=== PATIENT | female | born 1925 | race Caucasian/White ===

== ENCOUNTER 2016-10-22 12:59 | Outpatient (CLI) | payer MEDICARE ==
[2016-10-22 13:23] LABS: #Lymphocytes 0.9 thou/uL (1.20-3.40); #Monocytes 0.6 thou/uL (0.11-0.59); %Basophils 0.8 % (0.0-1.0); %Eosinophils 0.9 % (0.0-10.0); %Lymphocytes 19.8 % (21.0-51.0); %Monocytes 12.3 % (0.0-10.0); Hematocrit 28.2 % (36.0-47.0); Mean Platelet Volume 6.8 fL (7.4-10.4); Red Blood Cell (RBC) Count 2.89 mill/uL (4.20-5.40); White Blood Cell (WBC) Count 4.5 thou/uL (4.8-10.8)
[2016-10-22 14:04] LABS: ALT (SGPT) 33 U/L (0-55); AST (SGOT) 27 U/L (5-34); Alkaline Phosphatase 81 U/L (40-150); Anion Gap 13 mmol/L (10-20); BUN (Urea Nitrogen) 51 mg/dL (9.8-20.1); Bilirubin, Total 0.5 mg/dL (0.2-1.2); Calc. Creatinine Clearance 0 mL/min (70-130); Calcium 8.6 mg/dL (7.8-10.44); Carbon Dioxide 25 mmol/L (23-31); Chloride 103 mmol/L (98-107); Estimated GFR-MDRD 17; Globulin 2.8 g/dL (2.4-3.5); Protein, Total 6.3 g/dL (5.8-8.1)
== END 2016-10-22 13:00 | disposition home or self-care (01) ==
LOC: NAVSJIPCSP 12:59 → NAV LAB 13:00
PROVIDERS: ATTEND Internal Medicine
DX: I48.91 Unspecified atrial fibrillation (principal); N18.4 Chronic kidney disease, stage 4 (severe); I50.43 Acute on chronic combined systolic (congestive) and diastolic (congestive) heart failure
CPT/HCPCS: 36415; 80053; 85025; 86850; 86900; 86901

== ENCOUNTER 2016-10-23 10:01 | Inpatient (IN) | payer MEDICARE ==
[2016-10-23] MEDS ORDERED: Acetaminophen 325 MG TAB PO PRN ×2 (11:16→11:20)
[2016-10-23] MEDS ORDERED: Ondansetron ODT 4 MG TAB PO PRN (11:16)
[2016-10-23] MEDS ORDERED: traMADol HCl 50 MG TAB PO PRN (11:20)
[2016-10-23 12:12] LABS: #Basophils 0.1 thou/uL (0.0-0.2); #Lymphocytes 0.9 thou/uL (1.20-3.40); #Monocytes 0.7 thou/uL (0.11-0.59); #Neutrophils 3.4 thou/uL (1.40-6.50); %Basophils 1.1 % (0.0-1.0); %Eosinophils 0.7 % (0.0-10.0); %Lymphocytes 17.4 % (21.0-51.0); Hematocrit 27.6 % (36.0-47.0); Mean Platelet Volume 6.3 fL (7.4-10.4); Red Blood Cell (RBC) Count 2.81 mill/uL (4.20-5.40)
[2016-10-23 12:24] LABS: Anion Gap 16 mmol/L (10-20); BUN (Urea Nitrogen) 51 mg/dL (9.8-20.1); Calc. Creatinine Clearance 14 mL/min (70-130); Calcium 8.6 mg/dL (7.8-10.44); Carbon Dioxide 23 mmol/L (23-31); Chloride 103 mmol/L (98-107); Estimated GFR-MDRD 17
[2016-10-23] MEDS ORDERED: Sodium Chloride 0.9% 10 ML ONE (13:51)
[2016-10-23] MEDS: Furosemide 40 MG/4 ML VIAL SLOW IVP SCH (14:18)
--- NOTE | 2016-10-23 16:04 | RAD ---
CHEST TWO VIEWS: History: CHF. Dyspnea. Comparison: 07-19-16 FINDINGS: The cardiac silhouette is enlarged. Pulmonary vasculature is unremarkable. Small amount of bilater al pleural fluid is present. Mediastinum is midline with aortic calcification and a dual-lead left subclavian cardiac electronic device. central office equipment installer leads overlie the chest. IMPRESSION: 1. Small amount of bilateral pleural fluid without florid edema. 2. COPD. 3. Atherosclerosis. POS: [facility]
[2016-10-23] MEDS: Dronedarone HCl 400 MG TAB PO SCH (17:12)
[2016-10-23] MEDS: Carvedilol 25 MG TAB PO SCH (20:47)
[2016-10-23] MEDS: Famotidine 20 MG TAB PO SCH (20:48)
[2016-10-23] MEDS: Docusate 100 MG CAP PO SCH (20:48)
[2016-10-24] MEDS ORDERED: Sodium Chloride 0.9% 10 ML ONE (05:38)
[2016-10-24] MEDS: Furosemide 40 MG/4 ML VIAL SLOW IVP SCH ×2 (05:44→14:15)
[2016-10-24] MEDS ORDERED: Enoxaparin Sodium 40 MG/0.4 ML SYRINGE SC SCH (06:00)
[2016-10-24] MEDS ORDERED: Levothyroxine Sodium 50 MCG TAB PO SCH (06:00)
[2016-10-24 06:14] LABS: #Basophils 0.1 thou/uL (0.0-0.2); #Eosinphils 0.1 thou/uL (0.0-0.7); #Monocytes 0.6 thou/uL (0.11-0.59); #Neutrophils 2.8 thou/uL (1.40-6.50); %Basophils 1.2 % (0.0-1.0); %Eosinophils 1.3 % (0.0-10.0); %Lymphocytes 22.4 % (21.0-51.0); %Monocytes 13.4 % (0.0-10.0); Hematocrit 29.5 % (36.0-47.0); Mean Platelet Volume 6.4 fL (7.4-10.4); Red Blood Cell (RBC) Count 3.15 mill/uL (4.20-5.40); White Blood Cell (WBC) Count 4.5 thou/uL (4.8-10.8)
[2016-10-24 07:57] LABS: Anion Gap 11 mmol/L (10-20); BUN (Urea Nitrogen) 50 mg/dL (9.8-20.1); Calc. Creatinine Clearance 14 mL/min (70-130); Calcium 8.4 mg/dL (7.8-10.44); Carbon Dioxide 27 mmol/L (23-31); Chloride 104 mmol/L (98-107); Estimated GFR-MDRD 19
[2016-10-24] MEDS: Dronedarone HCl 400 MG TAB PO SCH ×2 (08:09→16:57)
[2016-10-24] MEDS: Docusate 100 MG CAP PO SCH (08:52)
[2016-10-24] MEDS: Famotidine 20 MG TAB PO SCH (08:52)
[2016-10-24] MEDS: Carvedilol 25 MG TAB PO SCH (08:53)
[2016-10-24] MEDS ORDERED: Lisinopril 10 MG TAB PO SCH (09:00)
[2016-10-24] MEDS ORDERED: Aspirin 81 mg Enteric Coated Tablet PO SCH (09:00)
[2016-10-24] MEDS ORDERED: Potassium Chloride 20 MEQ TAB PO SCH (09:00)
[2016-10-24] MEDS ORDERED: Sodium Chloride 0.9% 20 ML ONE (13:10)
[2016-10-24 18:29] VITALS: BP 119/56; TEMP 98.7
[2016-10-25] MEDS ORDERED: Furosemide 20 MG TAB PO SCH (09:00)
--- NOTE | 2016-10-29 09:01 | SS ---
DATE OF ADMISSION: 10/23/2016 DATE OF DISCHARGE: 10/24/2016 FINAL DIAGNOSES: 1. 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 2. Exacerbation of congestive heart failure with recurrent increased edema. 3. Chronic atrial fibrillation. 4. Severe hypertension. 5. Past history of poor control, now well controlled. 6. Osteoporosis and osteoarthritis with compression H. pylori with multiple compression fractures. 7. Chronic atrial fibrillation. HOSPITAL COURSE: Patient is a very pleasant 89-year-old white female living at home alone on medica tions of Tylenol as needed for pain, low dose aspirin 81 daily, calcium with vitamin D 800 mg twice daily, carvedilol 25 twice daily, docusate 100 twice daily, Multaq 400 twice daily, furosemide 20 mg daily, levothyroxine 50 mcg daily, lisinopril 10 daily, loratadine 10 daily, Protonix 40 daily, KCl 20 mEq daily. Patient had been fairly well until the last several weeks when she began to have inc reasing edema, not associated with any shortness of breath with associated fatigue, because of incre ased weight. She was seen in the office and found to have gains 12 pounds and to have 4+ edema. Th e peripheries with normal sinus rhythm, clear lung ray, stable vital signs with blood pressure 13 9/67, pulse of 66. She has had history of atrial fibrillation in the past, controlled with Multaq. She also has a history of chronic kidney disease stage 4, which has limited her diuresis in the reg ion she was only on 20 mg of Lasix. Her most recent creatinine prior to this admission was 1.36 in July; however, because of the increasing edema and fatigue, she was evaluated for recurrent anemi a and was found to have hemoglobin decreased again down to 8.5 from post-transfusion hemoglobin of 1 0.3 on 08/11/2016. This is slowly decreased to 9.6 and 8.8 over the last several months, and it was felt that possibly this was causing exacerbation of her congestive heart failure. She was therefor e admitted to the hospital transfused with 1 unit of packed cells and start her on aggressive diures is with Lasix 40 mg IV push twice daily during the transfusion. She had a significant diuresis in [facility] and had stable blood pressure and vital signs are remaining 119/56, O2 sats have improve d to 96% on room air, respirations were 20. Skin and extremities showed decreased edema. She did h ave a 4000 mL of output. She felt much better and wished to be discharged home. Had only 2+ edema at that time was healing well and agreed to be discharged home on 40 mg of Lasix twice daily. Jacque rn is, however, that her creatinine still remained elevated at 2.44, although it did improve with di uresis concerning that may not tolerate this dose of Lasix. Her BNP was found to be elevated at 832 , which was increased from previous BNP of 423 after the transfusion. Now therefore that she is mos t likely having slowly worsening renal function, exacerbating her longstanding hypertension, and con gestive heart failure and would need to be monitored closely; however, because of the need to contro l the edema, needed to control possible with exacerbation of congestive heart failure. We will disc arnel to home on 40 twice daily and return to the clinic in 1 week with basic metabolic profile for evaluation. Discharge medications included furosemide 40 mg twice daily and all other medications r emaining the same.
--- NOTE | 2016-11-14 17:33 | PQF ---
SANDY JACK LUKE MD [id number] CLINICAL DOCUMENTATION CLARIFICATION FORM: POST DISCHARGE PLEASE FAX RESPONSE BACK TO [phone] Addendum to original discharge summary date: ____ Late entry note date: __ DATE: ATTN: The following CLINICAL INDICATORS - SIGNS / SYMPTOMS are present in the medical record: - DC Summary says patient's CHF is excercebated. Please identify the type of CHF this patient suffers from [x ]Ascites / peripheral edema [x ]Elevated BNP from 423 to 832 [ ] RISKS: [ ]History of cardiac disease [ ]History of AICD [ ] TREATMENTS: [ ]Administration of CONSTANTIN / ARB [ ]Cardiac monitoring / telemetry [ ]IV diuretics [ ]Oxygen [ ] Please provide a response below if a more specific term indicating a diagnosis and/or acuity level for this condition can be identified. Please exercise your independent, professional judgment in responding to the clarification form. Clinical indicators are provided on the bottom of this form for your review. Thank you. [ ] Present on Admission (POA): [ ] Yes [ ] No [ ] Unable to determine ACUTE HEART FAILUREOTHER ETIOLOGIES OF HEART FAILURE [ ] Acute Systolic Heart Failure [ ] Heart Failure Due To Valvular Disease [ ] Acute Diastolic Heart Failure [ ] Right Heart Failure / Acute Cor Pulmonale [ ] Acute Systolic and Diastolic Heart Failure[ ] Right Heart Failure / Chronic Cor Pulmonale ACUTE ON CHRONIC HEART FAILURE MTDD
== END 2016-10-24 18:46 | disposition home or self-care (01) | DRG 299 ==
LOC: NAV ACUTE 10:01
PROVIDERS: ADMIT Internal Medicine; ATTEND Internal Medicine
PROC: 30233N1 Transfusion of Nonautologous Red Blood Cells into Peripheral Vein, Percutaneous Approach (ICD-10-PCS; principal; 2016-10-23)
DX: Q27.33 Arteriovenous malformation of digestive system vessel (principal); I50.43 Acute on chronic combined systolic (congestive) and diastolic (congestive) heart failure; N18.4 Chronic kidney disease, stage 4 (severe); K92.2 Gastrointestinal hemorrhage, unspecified; I13.0 Hypertensive heart and chronic kidney disease with heart failure and stage 1 through stage 4 chronic kidney disease, or unspecified chronic kidney disease; I48.2 Chronic atrial fibrillation; D64.9 Anemia, unspecified; M81.0 Age-related osteoporosis without current pathological fracture; M19.90 Unspecified osteoarthritis, unspecified site
CPT/HCPCS: 36430; 71020; 80048; 83880; 85025; 86850; 86900; 86901; A4216; J1650; J1940; P9016

== ENCOUNTER 2016-11-04 09:22 | Outpatient (CLI) | payer MEDICARE ==
[2016-11-04 13:27] LABS: #Lymphocytes 0.9 thou/uL (1.20-3.40); #Monocytes 0.5 thou/uL (0.11-0.59); #Neutrophils 2.5 thou/uL (1.40-6.50); %Basophils 0.9 % (0.0-1.0); %Eosinophils 1.2 % (0.0-10.0); %Lymphocytes 23.2 % (21.0-51.0); %Monocytes 12.8 % (0.0-10.0); Hematocrit 31.8 % (36.0-47.0); Mean Platelet Volume 5.9 fL (7.4-10.4)
[2016-11-04 13:32] LABS: Anion Gap 15 mmol/L (10-20); BUN (Urea Nitrogen) 53 mg/dL (9.8-20.1); Calc. Creatinine Clearance 0 mL/min (70-130); Carbon Dioxide 31 mmol/L (23-31); Chloride 98 mmol/L (98-107); Estimated GFR-MDRD 19
== END 2016-11-04 09:23 | disposition home or self-care (01) ==
LOC: NAVSJIPCSP 09:22
PROVIDERS: ATTEND Internal Medicine
DX: I50.43 Acute on chronic combined systolic (congestive) and diastolic (congestive) heart failure (principal); N18.4 Chronic kidney disease, stage 4 (severe)
CPT/HCPCS: 36415; 80048; 83880; 85025

== ENCOUNTER 2016-11-27 09:38 | Outpatient (CLI) | payer MEDICARE ==
[2016-11-27 13:15] LABS: Anion Gap 16 mmol/L (10-20); BUN (Urea Nitrogen) 58 mg/dL (9.8-20.1); Calc. Creatinine Clearance 0 mL/min (70-130); Carbon Dioxide 27 mmol/L (23-31); Chloride 97 mmol/L (98-107); Estimated GFR-MDRD 16
[2016-11-27 14:31] LABS: Anisocytosis SLIGHT = 6-15 cells (100X) (0-5/hpf); Hematocrit 29.1 % (36.0-47.0); Hypochromia SLIGHT = 6-15 cells (100X) (0-5/hpf); Mean Platelet Volume 6.1 fL (7.4-10.4); Neutrophil 59 % (42-75); Reactive Lymphocytes 1 % (0-10); Red Blood Cell (RBC) Count 3.04 mill/uL (4.20-5.40); White Blood Cell (WBC) Count 4.8 thou/uL (4.8-10.8)
== END 2016-11-27 09:39 | disposition home or self-care (01) ==
LOC: NAVSJIPCSP 09:38
PROVIDERS: ATTEND Internal Medicine
DX: I12.9 Hypertensive chronic kidney disease with stage 1 through stage 4 chronic kidney disease, or unspecified chronic kidney disease (principal); I50.43 Acute on chronic combined systolic (congestive) and diastolic (congestive) heart failure; N18.4 Chronic kidney disease, stage 4 (severe); K55.21 Angiodysplasia of colon with hemorrhage
CPT/HCPCS: 36415; 80048; 83880; 85025

== ENCOUNTER 2017-01-18 15:06 | Emergency (ER) | payer MEDICARE ==
[2017-01-18 15:55] LABS: #Monocytes 0.6 thou/uL (0.11-0.59); #Neutrophils 3.4 thou/uL (1.40-6.50); %Basophils 0.7 % (0.0-1.0); %Eosinophils 0.4 % (0.0-10.0); %Lymphocytes 19.9 % (21.0-51.0); %Monocytes 11.3 % (0.0-10.0); %Neutrophils 67.7 % (42.0-75.0); Hemoglobin 6.2 g/dL (12.0-16.0); Mean Corpuscular HGB CONC 32.2 g/dL (32.0-36.0); Mean Corpuscular Hemoglobin 28.9 pg (27.0-31.0); Mean Corpuscular Volume 89.9 fl (81.0-99.0); Mean Platelet Volume 6.7 fL (7.4-10.4); Platelet Count 170 thou/uL (130-400); RBC Distribution Width 12.6 % (11.5-14.5); Red Blood Cell (RBC) Count 2.14 mill/uL (4.20-5.40); White Blood Cell (WBC) Count 5.1 thou/uL (4.8-10.8)
[2017-01-18 16:00] LABS: INR-International Normal Ratio 1.2; Prothrombin Time 15.1 SEC (12.0-14.7)
[2017-01-18 16:09] LABS: ALT (SGPT) 23 U/L (0-55); AST (SGOT) 27 U/L (5-34); Albumin 3.5 g/dL (3.4-4.8); Alkaline Phosphatase 66 U/L (40-150); Anion Gap 18 mmol/L (10-20); BUN (Urea Nitrogen) 78 mg/dL (9.8-20.1); Bilirubin, Total 0.5 mg/dL (0.2-1.2); Calc. Creatinine Clearance 0 mL/min (70-130); Calcium 8.7 mg/dL (7.8-10.44); Carbon Dioxide 23 mmol/L (23-31); Chloride 96 mmol/L (98-107); Estimated GFR-MDRD 13; Globulin 2.6 g/dL (2.4-3.5); Glucose 111 mg/dL (83-110); Potassium 5.1 mmol/L (3.5-5.1); Protein, Total 6.1 g/dL (5.8-8.1); Sodium 132 mmol/L (136-145)
--- NOTE | 2017-01-18 16:27 | RAD ---
PORTABLE CHEST ONE VIEW 01/18/17 at 4:01 p.m. HISTORY: Dyspnea, dizziness, nausea. FINDINGS: Comparison is made with exam of 10/23/16. Left sided pacemaker device remains in place. The heart size is enlarged. The aorta is tortuous. The lungs are well expanded without confluent areas or consolidation, pneumothorax, lena pulmonary marlon ma or large pleural effusions. POS: [facility]
[2017-01-18] MEDS ORDERED: Pantoprazole 40 MG VIAL ONE (16:42)
[2017-01-18] MEDS ORDERED: Sodium Chloride 0.9% 500 ML ONE (17:32)
== END 2017-01-18 18:00 | disposition short-term general hospital (02) ==
LOC: NAV ERS 15:06
DX: K92.2 Gastrointestinal hemorrhage, unspecified (principal); D50.0 Iron deficiency anemia secondary to blood loss (chronic); E78.5 Hyperlipidemia, unspecified; I10 Essential (primary) hypertension; Z95.0 Presence of cardiac pacemaker; Z79.899 Other long term (current) drug therapy
CPT/HCPCS: 36430; 71010; 80053; 85025; 85610; 86850; 86900; 86901; 93005; 96374; C9113; J7050; P9016

== ENCOUNTER 2017-01-29 11:43 | Outpatient (CLI) | payer MEDICARE ==
[2017-01-29 12:35] LABS: #Eosinphils 0.1 thou/uL (0.0-0.7); #Lymphocytes 1.1 thou/uL (1.20-3.40); #Monocytes 0.6 thou/uL (0.11-0.59); #Neutrophils 2.8 thou/uL (1.40-6.50); %Eosinophils 1.2 % (0.0-10.0); %Lymphocytes 24.7 % (21.0-51.0); %Monocytes 12.1 % (0.0-10.0); Hemoglobin 7.8 g/dL (12.0-16.0); Mean Corpuscular HGB CONC 31.7 g/dL (32.0-36.0); Mean Corpuscular Volume 88.5 fl (81.0-99.0); Mean Platelet Volume 6.1 fL (7.4-10.4); Platelet Count 211 thou/uL (130-400); RBC Distribution Width 13.9 % (11.5-14.5); Red Blood Cell (RBC) Count 2.79 mill/uL (4.20-5.40); White Blood Cell (WBC) Count 4.5 thou/uL (4.8-10.8)
[2017-01-29 12:55] LABS: Anion Gap 12 mmol/L (10-20); BUN (Urea Nitrogen) 55 mg/dL (9.8-20.1); Calc. Creatinine Clearance 0 mL/min (70-130); Calcium 8.6 mg/dL (7.8-10.44); Carbon Dioxide 28 mmol/L (23-31); Chloride 98 mmol/L (98-107); Estimated GFR-MDRD 17; Glucose 75 mg/dL (83-110); Potassium 4.3 mmol/L (3.5-5.1); Sodium 134 mmol/L (136-145)
== END 2017-01-29 11:44 | disposition home or self-care (01) ==
LOC: NAVSJIPCSP 11:43
PROVIDERS: ATTEND Internal Medicine
DX: N18.4 Chronic kidney disease, stage 4 (severe) (principal); K55.21 Angiodysplasia of colon with hemorrhage
CPT/HCPCS: 36415; 80048; 83880; 85025

== ENCOUNTER 2017-02-09 10:13 | Inpatient (IN) | payer MEDICARE ==
[2017-02-09] MEDS ORDERED: Ondansetron HCl/PF 4 MG/2 ML Vial ONE (10:42)
[2017-02-09] MEDS ORDERED: Ketorolac Tromethamine 30 MG/ML VIAL ONE (10:42)
[2017-02-09] MEDS ORDERED: Fentanyl 100 MCG/2 ML VIAL ONE ×2 (10:42→12:27)
[2017-02-09 10:59] LABS: #Lymphocytes 0.9 thou/uL (1.20-3.40); #Monocytes 0.6 thou/uL (0.11-0.59); #Neutrophils 3.3 thou/uL (1.40-6.50); %Basophils 0.9 % (0.0-1.0); %Eosinophils 0.5 % (0.0-10.0); %Lymphocytes 17.9 % (21.0-51.0); %Monocytes 12.5 % (0.0-10.0); %Neutrophils 68.3 % (42.0-75.0); Hemoglobin 6.8 g/dL (12.0-16.0); Mean Corpuscular HGB CONC 32.3 g/dL (32.0-36.0); Mean Corpuscular Volume 86.9 fl (81.0-99.0); Mean Platelet Volume 5.9 fL (7.4-10.4); Platelet Count 219 thou/uL (130-400); RBC Distribution Width 14.1 % (11.5-14.5); Red Blood Cell (RBC) Count 2.43 mill/uL (4.20-5.40); White Blood Cell (WBC) Count 4.8 thou/uL (4.8-10.8)
[2017-02-09 11:03] LABS: Bilirubin Negative (Negative); Blood, Urine Negative (Negative); Clarity Hazy (Clear); Glucose, Urine (Dipstick) Negative (Negative); Leukocyte Small (Negative); Nitrite Negative (Negative); Protein, Urine (Dipstick) Negative (Neg-Trace); Specific Gravity, Urine 1.015 (1.005-1.030); Urobilinogen 0.2 mg/dL (0.2-1.0)
[2017-02-09 11:09] LABS: Bacteria/HPF 1+ HPF (None Seen); RBC/HPF 0-3 HPF (0-3); Squamous Epithelial 0-3 HPF (0-3)
[2017-02-09] MEDS ORDERED: Levofloxacin 500 mg/D5W 100 ml Premix Bag ONE (11:14)
[2017-02-09 11:23] LABS: Amylase 112 U/L (20-160); Anion Gap 17 mmol/L (10-20); BUN (Urea Nitrogen) 65 mg/dL (9.8-20.1); Calc. Creatinine Clearance 0 mL/min (70-130); Calcium 8.5 mg/dL (7.8-10.44); Carbon Dioxide 24 mmol/L (23-31); Chloride 97 mmol/L (98-107); Estimated GFR-MDRD 16; Glucose 122 mg/dL (83-110); Lipase 26 U/L (8-78); Potassium 4.6 mmol/L (3.5-5.1); Sodium 133 mmol/L (136-145)
[2017-02-09 11:25] LABS: CKMB 1.9 ng/mL (0-6.6); Troponin I 0.012 ng/mL (< 0.028)
[2017-02-09] MEDS ORDERED: methylPREDNISolone Sod Succ/PF 125 MG/2 ML VIAL ONE (12:34)
--- NOTE | 2017-02-09 12:37 | CT ---
CT OF THE ABDOMEN AND PELVIS: DATE: 02/09/17. PROVIDED CLINICAL HISTORY: Back pain. TECHNIQUE: CT data was acquired through the abdomen and pelvis without IV or enteric contrast material. FINDINGS: Comparison is made with the examination dated 04/25/14. There are small bilateral pleural effusions with adjacent basilar volume loss. Enlargement of the heart is again noted with conspicuous dilatation of the IVC suggesting right hear t dysfunction. This is similar to the prior study. Large right renal cyst is redemonstrated. There is a focus of increased density seen in the expected location of the distal common duct. It i s possible this represents contrast material within the descending duodenum as well. It is difficul t to assess for biliary or pancreatic ductal dilatation given lack of IV contrast. Conspicuous atherosclerotic vascular calcifications involve the abdominal aorta and its branches. T here is no evidence for abdominal aortic aneurysm. Evaluation of the pelvis is markedly limited due to beam hardening artifact and bilateral hip arthro plasties. Partially visualized sigmoid colon diverticula and free pelvic fluid are noted. Changes of prior cholecystectomy are seen. The osseous structures demonstrate no concerning osteoblastic or osteolytic lesions. Compression de formity involving L1 with vertebroplasty change again noted as is compression deformity at superior end late of L4. There is no evidence for bowel obstruction. No evidence for pneumoperitoneum. IMPRESSION: 1. Limited study due to the lack of IV and enteric contrast material. 2. Focus of increased density in the right upper quadrant near the expected course of the common du ct. This could reflect a common duct stone. Less likely, this could reflect material within the de scending duodenum. Correlation with laboratory values is recommended to evaluate for biliary obstru ctive change. MRCP may be useful for further evaluation. 3. Small bilateral pleural effusions. 4. Conspicuous atherosclerosis. 5. A small amount of nonspecific free fluid in the pelvis, incompletely characterized due to extens libertad beam-hardening artifact from bilateral hip arthroplasties. POS: [facility]
[2017-02-09] MEDS ORDERED: Sodium Chloride 0.9% 1,000 ML IV SCH (14:17)
[2017-02-09] MEDS ORDERED: Ondansetron HCl/PF 4 MG/2 ML Vial IVP PRN (14:17)
[2017-02-09] MEDS ORDERED: Ondansetron ODT 4 MG TAB SL PRN (14:17)
[2017-02-09] MEDS ORDERED: HYDROcodone/Acetaminophen 5/325 mg Tablet PO PRN (14:17)
[2017-02-09] MEDS ORDERED: Fentanyl 100 MCG/2 ML VIAL SLOW IVP PRN (14:18)
[2017-02-09] MEDS: Docusate 100 MG CAP PO SCH (21:45)
[2017-02-09] MEDS: traMADol HCl 50 MG TAB PO PRN (21:46)
[2017-02-10] MEDS: traMADol HCl 50 MG TAB PO PRN ×2 (03:29→16:38)
[2017-02-10 05:50] LABS: #Lymphocytes 0.6 thou/uL (1.20-3.40); #Monocytes 0.1 thou/uL (0.11-0.59); #Neutrophils 6.8 thou/uL (1.40-6.50); %Basophils 0.1 % (0.0-1.0); %Lymphocytes 7.9 % (21.0-51.0); %Monocytes 1.8 % (0.0-10.0); %Neutrophils 90.2 % (42.0-75.0); Hemoglobin 6.5 g/dL (12.0-16.0); Mean Corpuscular HGB CONC 32.3 g/dL (32.0-36.0); Mean Corpuscular Volume 86.7 fl (81.0-99.0); Mean Platelet Volume 6.1 fL (7.4-10.4); Platelet Count 207 thou/uL (130-400); RBC Distribution Width 13.6 % (11.5-14.5); Red Blood Cell (RBC) Count 2.32 mill/uL (4.20-5.40); White Blood Cell (WBC) Count 7.6 thou/uL (4.8-10.8)
[2017-02-10 06:06] LABS: AST (SGOT) 15 U/L (5-34); Alkaline Phosphatase 63 U/L (40-150); Anion Gap 15 mmol/L (10-20); BUN (Urea Nitrogen) 70 mg/dL (9.8-20.1); Bilirubin, Total 0.4 mg/dL (0.2-1.2); Calc. Creatinine Clearance 11 mL/min (70-130); Calcium 8.4 mg/dL (7.8-10.44); Carbon Dioxide 25 mmol/L (23-31); Chloride 101 mmol/L (98-107); Estimated GFR-MDRD 16; Globulin 2.5 g/dL (2.4-3.5); Glucose 168 mg/dL (83-110); Potassium 4.8 mmol/L (3.5-5.1); Protein, Total 5.5 g/dL (5.8-8.1); Sodium 136 mmol/L (136-145)
[2017-02-10 06:14] LABS: ALT (SGPT) 16 U/L (0-55)
[2017-02-10] MEDS: Dronedarone HCl 400 MG TAB PO SCH ×2 (08:51→16:38)
[2017-02-10] MEDS: Docusate 100 MG CAP PO SCH ×2 (08:51→21:06)
[2017-02-10] MEDS: Furosemide 20 MG TAB PO SCH ×2 (08:51→14:50)
[2017-02-10] MEDS: Potassium Chloride 20 MEQ TAB PO SCH (08:52)
[2017-02-10] MEDS: Acetaminophen 325 MG TAB PO PRN (16:38)
[2017-02-11 07:31] LABS: Anion Gap 15 mmol/L (10-20); BUN (Urea Nitrogen) 75 mg/dL (9.8-20.1); Calc. Creatinine Clearance 11 mL/min (70-130); Calcium 8.6 mg/dL (7.8-10.44); Carbon Dioxide 23 mmol/L (23-31); Chloride 102 mmol/L (98-107); Estimated GFR-MDRD 16; Glucose 98 mg/dL (83-110); Potassium 5.2 mmol/L (3.5-5.1); Sodium 135 mmol/L (136-145)
[2017-02-11 07:58] LABS: #Lymphocytes 1.2 thou/uL (1.20-3.40); #Neutrophils 8.5 thou/uL (1.40-6.50); %Basophils 0.2 % (0.0-1.0); %Eosinophils 0.1 % (0.0-10.0); %Lymphocytes 11.4 % (21.0-51.0); %Neutrophils 79.4 % (42.0-75.0); Hemoglobin 9.5 g/dL (12.0-16.0); Mean Corpuscular HGB CONC 32.6 g/dL (32.0-36.0); Mean Corpuscular Hemoglobin 27.9 pg (27.0-31.0); Mean Corpuscular Volume 85.6 fl (81.0-99.0); Mean Platelet Volume 6.5 fL (7.4-10.4); Platelet Count 203 thou/uL (130-400); RBC Distribution Width 14.4 % (11.5-14.5); Red Blood Cell (RBC) Count 3.41 mill/uL (4.20-5.40); White Blood Cell (WBC) Count 10.7 thou/uL (4.8-10.8)
[2017-02-11] MEDS: Lidocaine 5% Patch TD SCH ×2 (08:12→20:36)
[2017-02-11] MEDS: Docusate 100 MG CAP PO SCH ×2 (08:13→20:38)
[2017-02-11] MEDS: Dronedarone HCl 400 MG TAB PO SCH ×2 (08:13→17:54)
[2017-02-11] MEDS: Furosemide 20 MG TAB PO SCH ×2 (08:13→14:17)
[2017-02-11] MEDS: Potassium Chloride 20 MEQ TAB PO SCH (08:13)
[2017-02-11] MEDS: traMADol HCl 50 MG TAB PO PRN ×2 (11:44→20:38)
[2017-02-11] MEDS: Acetaminophen 325 MG TAB PO PRN (20:38)
[2017-02-12] MEDS: Dronedarone HCl 400 MG TAB PO SCH ×2 (08:10→17:05)
[2017-02-12] MEDS: Furosemide 20 MG TAB PO SCH ×2 (09:13→14:02)
[2017-02-12] MEDS: Potassium Chloride 20 MEQ TAB PO SCH (09:14)
[2017-02-12] MEDS: Docusate 100 MG CAP PO SCH (09:14)
[2017-02-12] MEDS: Lidocaine 5% Patch TD SCH (09:15)
[2017-02-12 11:03] VITALS: BP 167/91; TEMP 98.4
[2017-02-12 14:16] VITALS: BMI 17.7
--- NOTE | 2017-02-12 17:36 | PRG ---
DATE OF SERVICE: 02/11/2017 SUBJECTIVE: The patient feels better, up and moving around and able to move in the room with fentan yl patch. He is having no confusion, no nausea or vomiting, and is tolerating meals. We will start on physical therapy. OBJECTIVE: VITAL SIGNS: Blood pressure is 164/77, O2 sats 93%, respirations 18, pulse 72, afebrile. LUNGS: Clear. CARDIAC: Regular rhythm. BACK: Back shows persistent but decreased muscle spasm. NEUROLOGIC: Intact. LABORATORY DATA: H\T\H shows hemoglobin up to 9.5, hematocrit 29, white count 10,700 after 2 units packed cells transfused. Renal function showed creatinine improved slightly to 2.72, but still not at baseline of 2.60 and 2.18 1 month ago. ASSESSMENT: 1. Persistent anemia secondary to slow gastrointestinal bleed from arteriovenous malformations, sta tus post transfusion with normalization of hemoglobin. 2. Improved to thoracic muscle spasm with fentanyl patch with markedly decreased pain. We will sta rt on PT. 3. Acute on chronic renal failure now to chronic kidney disease stage 4 with only minimal improveme nt with transfusion. PLAN: Continue PT, OT and possibly discharge tomorrow with able to maintain ADLs.
--- NOTE | 2017-02-12 20:11 | HP ---
DATE OF ADMISSION: 02/10/2017 HISTORY OF PRESENT ILLNESS: The patient is an 89-year-old white female who presents with history of severe upper right back pain for the last 12 hours. She has been placed in the [facility] an d has continued to have pain with only transient relief with IV fentanyl and therefore she is being admitted through the night for persistent chronic pain. She has been unable to maintain ADLs. She has had no shortness of breath or chest pain. She has had decreased appetite. No nausea, vomiting or diarrhea. PAST MEDICAL HISTORY: Remarkable for a recent admission to [facility] for an acute GI bleed with subsequent evaluation with colonoscopy showing AV malformation and diverticulosis requiring transfus ion and cauterization of the AVMs. 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 ALLERGIES: History of allergies to MORPHINE and PENICILLIN. MEDICATIONS ON ADMISSION: Include Multaq 400 mg twice daily, furosemide 40 mg twice daily, omeprazo le 10 mg daily, K-Dur 20 mEq daily, hydralazine 25 twice daily, docusate 100 mg twice daily. SOCIAL HISTORY: She lives alone, nonsmoker, nondrinker. REVIEW OF SYSTEMS: HEENT: She denies any headaches, dizziness, change in vision or hearing, hoarseness or dysphagia. PULMONARY: She denies cough, sputum production, pneumonia, asthma, or tuberculosis. CARDIOVASCULAR: She denies any chest pain, orthopnea, paroxysmal nocturnal dyspnea, or edema, but h as had history of this in the past. GASTROINTESTINAL: She has decreased appetite, some nausea, but no vomiting, no change in bowel move ments, no recent dark stools. GENITOURINARY: She denies any dysuria, hematuria, or nocturia. MUSCULOSKELETAL: She has chronic severe back pain secondary to degenerative disk disease. NEUROLOGIC: She denies localized numbness or weakness in arms or extremities. PAST SURGICAL HISTORY: Positive for appendectomy, cataract surgery, pacemaker placement, left total hip, and cholecystectomy. CODE STATUS: She is a NO CODE. PHYSICAL EXAMINATION: GENERAL: Patient is an elderly white female lying in bed, has no pain at rest, but severe upper nas k pain on any movement. She denies shortness of breath or chest pain. VITAL SIGNS: Blood pressure 130/72, temperature 98, pulse 61, respirations 18, O2 sats 99%. HEENT: Pupils are equal, round, and reactive to light and accommodation. Sclerae are anicteric, Co njunctivae pale. Oral mucous membranes dehydrated. NECK: Supple. There are no nodes or masses. JVP is not elevated. LUNGS: Clear. CARDIAC: Regular rhythm, S4, no gallops or murmurs. ABDOMEN: Soft and nontender with no masses or organomegaly. SKIN/EXTREMITIES: Display no edema, clubbing, or cyanosis. Severe tenderness to palpation on the r ight upper thoracic paravertebral area with no typical pain on the thoracic spine. NEUROLOGICAL: Shows no focal findings. LABORATORY DATA: Hemoglobin was 6.8, white count 4800, hematocrit 21. Sodium 133, potassium 4.6, c hloride 97, bicarbonate 24, BUN 65, creatinine 2.75, glucose 122, calcium 8.5. CK-MB 2.3 and tropon in 0.015. ASSESSMENT AND PLAN: An 89-year-old white female with history of severe degenerative disk disease, joint disease of the lumbar spine, and thoracic spinal kyphosis. She presents with muscle spasms li miting her ability to do ADLs. She also has a history of recurrent anemia secondary to a slow bleed from AVMs and presents now with recurrent anemia with a hemoglobin of 6.8. Her renal function has also deteriorated with chronic kidney disease stage 3, decreased to stage 4 with acute on chronic fa ilure at this time. GFR down to 16. PLAN: Admit to the hospital and started on IV fluids, try fentanyl patch as IV fentanyl did work sh ort term, repeat H\T\H, type and cross 2 units packed cells and transfuse slowly. Ambulate as ines ated.
--- NOTE | 2017-02-13 01:13 | DIS ---
DATE OF ADMISSION: 02/09/2017 DATE OF DISCHARGE: 02/12/2017 FINAL DIAGNOSES: 1. Acute thoracic muscle spasm improved with lidocaine patch. 2. [id number] renal failure, chronic kidney disease stage 4, stabilized and GFR 16. 3. Recurrent anemia secondary to slow gastrointestinal bleed from arteriovenous malformations, stat us post transfusion with 2 units of hemoglobin of 9.5. 4. Hypertension, well controlled. HOSPITAL COURSE: The patient is an 89-year-old white female with history of hypertension, chronic k idney disease stage 4, current GI bleed from AVMs, and severe degenerative disk disease and joint di sease of the lumbar spine, presents with severe muscle spasms of upper back secondary to thoracic mu scle spasms. It was initially improved with IV fentanyl, but could not tolerate fentanyl patch clare use of severe nausea. She was subsequently placed on Lidoderm patch topically and appeared to ines ate this well and was still able to get around and wished to be discharged home. She was transfused 2 units of packed cells with hemoglobin up to 6.8 to 9.5, but her renal function only improved slig htly from 2-2.77, which was deteriorated from baseline of 2.18 last month after IV fluids. She glass kit was eating better, wished to be discharged home. Therefore, was discharged home. Her lungs are clear. Cardiac examination regular rhythm. Abdomen was soft and nontender. There still is muscle spasms appeared to be tolerated fentanyl patch. She was discharged home on her prehospitalization medications of Tylenol as needed for pain, docusate 100 twice daily, Multaq 400 twice daily, furosem angelika 40 mg twice daily, KCl 20 mEq daily, hydralazine 25 twice daily. She will be seen by myself in 1 week for follow up with repeat base met profile. She will be given 30 Lidoderm patches to wear tw ice daily as needed.
== END 2017-02-12 18:00 | disposition home or self-care (01) | DRG 552 ==
LOC: NAV ERS 10:13 → NAV ACUTE 13:21 → OBSVTOIN 02-10 18:36
PROVIDERS: ADMIT Internal Medicine; ATTEND Internal Medicine
PROC: 30233N1 Transfusion of Nonautologous Red Blood Cells into Peripheral Vein, Percutaneous Approach (ICD-10-PCS; principal; 2017-02-10)
DX: M47.9 Spondylosis, unspecified (principal); N18.4 Chronic kidney disease, stage 4 (severe); K92.2 Gastrointestinal hemorrhage, unspecified; N17.9 Acute kidney failure, unspecified; I13.0 Hypertensive heart and chronic kidney disease with heart failure and stage 1 through stage 4 chronic kidney disease, or unspecified chronic kidney disease; I50.32 Chronic diastolic (congestive) heart failure; I48.0 Paroxysmal atrial fibrillation; M62.830 Muscle spasm of back; M40.204 Unspecified kyphosis, thoracic region; Z88.0 Allergy status to penicillin; Z88.8 Allergy status to other drugs, medicaments and biological substances; Q27.33 Arteriovenous malformation of digestive system vessel; D50.0 Iron deficiency anemia secondary to blood loss (chronic)
CPT/HCPCS: 36430; 74176; 80048; 80053; 81003; 81015; 82150; 82553; 83690; 84484; 85025; 86850; 86900; 86901; 93005; 96365; 96375; 96376; A4216; G8978-GP-CJ; G8979-GP-CI; J1885; J1956; J2405; J2930; J3010; P9016

== ENCOUNTER 2017-02-20 09:08 | Emergency (ER) | payer MEDICARE ==
[2017-02-20 09:49] LABS: #Lymphocytes 1.1 thou/uL (1.20-3.40); #Monocytes 0.5 thou/uL (0.11-0.59); #Neutrophils 3.5 thou/uL (1.40-6.50); %Basophils 0.9 % (0.0-1.0); %Eosinophils 0.8 % (0.0-10.0); %Lymphocytes 21.7 % (21.0-51.0); %Neutrophils 67.7 % (42.0-75.0); Hemoglobin 9.8 g/dL (12.0-16.0); Mean Corpuscular HGB CONC 32.4 g/dL (32.0-36.0); Mean Corpuscular Hemoglobin 27.7 pg (27.0-31.0); Mean Corpuscular Volume 85.3 fl (81.0-99.0); Mean Platelet Volume 6.2 fL (7.4-10.4); Platelet Count 188 thou/uL (130-400); RBC Distribution Width 14.1 % (11.5-14.5); Red Blood Cell (RBC) Count 3.52 mill/uL (4.20-5.40); White Blood Cell (WBC) Count 5.2 thou/uL (4.8-10.8)
[2017-02-20 09:55] LABS: PTT 25.6 SEC (22.9-36.1); Prothrombin Time 13.4 SEC (12.0-14.7)
[2017-02-20 10:03] LABS: ALT (SGPT) 10 U/L (8-55); AST (SGOT) 25 U/L (5-34); Albumin 3.6 g/dL (3.4-4.8); Alkaline Phosphatase 72 U/L (40-150); Anion Gap 17 mmol/L (10-20); BUN (Urea Nitrogen) 70 mg/dL (9.8-20.1); Bilirubin, Total 0.6 mg/dL (0.2-1.2); Calc. Creatinine Clearance 0 mL/min (70-130); Calcium 9.2 mg/dL (7.8-10.44); Carbon Dioxide 27 mmol/L (23-31); Chloride 93 mmol/L (98-107); Estimated GFR-MDRD 14; Globulin 3.2 g/dL (2.4-3.5); Glucose 108 mg/dL (83-110); Lipase 35 U/L (8-78); Potassium 4.6 mmol/L (3.5-5.1); Protein, Total 6.8 g/dL (6.0-8.3); Sodium 132 mmol/L (136-145)
[2017-02-20] MEDS ORDERED: Sodium Chloride 0.9% 1,000 ML ONE (10:25)
[2017-02-20] MEDS ORDERED: Famotidine/PF 20 mg/2ml Vial ONE (10:25)
--- NOTE | 2017-02-20 10:49 | RAD ---
RADIOGRAPH CHEST 1 VIEW RADIOGRAPH ABDOMEN 2 VIEWS: Date: 02-20-17 HISTORY: 89-year-old female with lower gastrointestinal hemorrhage. FINDINGS: Dual-lead left subclavian pacemaker. Left ventricular configuration of the heart. No congestive hear t failure. Focal fibrotic pulmonary changes at the right upper lobe. No consolidation or pulmonary e dom. No pneumothorax. Vertebroplasty cement within a collapsed upper lumbar vertebra. Bilateral metallic hip replacement p rostheses. Air fluid levels in nondilated bowel loop, perhaps transverse colon. Large amount of gas throughout nondilated small bowel loops. No evidence of pneumoperitoneum. IMPRESSION: 1. Nonspecific bowel gas pattern. 2. No acute pulmonary findings. 3. Pacemaker. MERISSA POS: [facility]
== END 2017-02-20 11:02 | disposition short-term general hospital (02) ==
LOC: NAV ERS 09:08
DX: K92.2 Gastrointestinal hemorrhage, unspecified (principal); E78.5 Hyperlipidemia, unspecified; I10 Essential (primary) hypertension; D50.9 Iron deficiency anemia, unspecified; Z95.0 Presence of cardiac pacemaker; Z79.899 Other long term (current) drug therapy
CPT/HCPCS: 36415; 74022; 80053; 82274; 83690; 83880; 85025; 85610; 85730; 96361; 96374; J7050; S0028

== ENCOUNTER 2017-03-05 11:28 | Outpatient (CLI) | payer MEDICARE ==
[2017-03-05 12:25] LABS: #Lymphocytes 1.2 thou/uL (1.20-3.40); #Monocytes 0.6 thou/uL (0.11-0.59); #Neutrophils 3.5 thou/uL (1.40-6.50); %Basophils 0.9 % (0.0-1.0); %Eosinophils 0.7 % (0.0-10.0); %Lymphocytes 22.1 % (21.0-51.0); %Monocytes 11.4 % (0.0-10.0); Hemoglobin 8.5 g/dL (12.0-16.0); Mean Corpuscular HGB CONC 31.6 g/dL (32.0-36.0); Mean Corpuscular Hemoglobin 27.7 pg (27.0-31.0); Mean Corpuscular Volume 87.6 fl (81.0-99.0); Mean Platelet Volume 5.9 fL (7.4-10.4); Platelet Count 236 thou/uL (130-400); Red Blood Cell (RBC) Count 3.07 mill/uL (4.20-5.40); White Blood Cell (WBC) Count 5.4 thou/uL (4.8-10.8)
[2017-03-05 12:54] LABS: ALT (SGPT) 9 U/L (8-55); AST (SGOT) 20 U/L (5-34); Albumin 3.6 g/dL (3.4-4.8); Alkaline Phosphatase 94 U/L (40-150); Anion Gap 16 mmol/L (10-20); BUN (Urea Nitrogen) 71 mg/dL (9.8-20.1); Bilirubin, Total 0.4 mg/dL (0.2-1.2); Calc. Creatinine Clearance 0 mL/min (70-130); Calcium 8.7 mg/dL (7.8-10.44); Carbon Dioxide 26 mmol/L (23-31); Chloride 97 mmol/L (98-107); Estimated GFR-MDRD 15; Globulin 2.7 g/dL (2.4-3.5); Glucose 81 mg/dL (83-110); Potassium 4.9 mmol/L (3.5-5.1); Protein, Total 6.3 g/dL (6.0-8.3); Sodium 134 mmol/L (136-145)
== END 2017-03-05 11:29 | disposition home or self-care (01) ==
LOC: NAVSJIPCSP 11:28
PROVIDERS: ATTEND Internal Medicine
DX: N18.4 Chronic kidney disease, stage 4 (severe) (principal); K21.9 Gastro-esophageal reflux disease without esophagitis; M47.816 Spondylosis without myelopathy or radiculopathy, lumbar region
CPT/HCPCS: 36415; 80053; 85025

== ENCOUNTER 2017-03-19 09:23 | Outpatient (CLI) | payer MEDICARE ==
[2017-03-19 12:38] LABS: Anion Gap 17 mmol/L (10-20); BUN (Urea Nitrogen) 60 mg/dL (9.8-20.1); Calc. Creatinine Clearance 0 mL/min (70-130); Calcium 8.2 mg/dL (7.8-10.44); Carbon Dioxide 24 mmol/L (23-31); Chloride 98 mmol/L (98-107); Estimated GFR-MDRD 15; Glucose 115 mg/dL (83-110); Potassium 4.4 mmol/L (3.5-5.1); Sodium 135 mmol/L (136-145)
[2017-03-19 13:14] LABS: #Eosinphils 0.1 thou/uL (0.0-0.7); #Lymphocytes 1.1 thou/uL (1.20-3.40); #Monocytes 0.5 thou/uL (0.11-0.59); #Neutrophils 3.3 thou/uL (1.40-6.50); %Basophils 0.9 % (0.0-1.0); %Eosinophils 1.3 % (0.0-10.0); %Lymphocytes 21.7 % (21.0-51.0); %Monocytes 10.6 % (0.0-10.0); %Neutrophils 65.4 % (42.0-75.0); Anisocytosis MODERATE=16-30 cells (100X) (0-5/hpf); Hemoglobin 7.3 g/dL (12.0-16.0); Hypochromia MODERATE=16-30 cells (100X) (0-5/hpf); MDiff Complete? YES; Mean Corpuscular HGB CONC 30.7 g/dL (32.0-36.0); Mean Corpuscular Hemoglobin 28.2 pg (27.0-31.0); Mean Corpuscular Volume 91.8 fl (81.0-99.0); Mean Platelet Volume 5.5 fL (7.4-10.4); PLT Morphology Comment Appears Adequate; Platelet Count 204 thou/uL (130-400); Poikilocytosis SLIGHT = 6-15 cells (100X) (0-5/hpf); RBC Distribution Width 18.7 % (11.5-14.5)
== END 2017-03-19 09:24 | disposition home or self-care (01) ==
LOC: NAV LABSP 09:23
PROVIDERS: ATTEND Internal Medicine
DX: I13.0 Hypertensive heart and chronic kidney disease with heart failure and stage 1 through stage 4 chronic kidney disease, or unspecified chronic kidney disease (principal); I50.42 Chronic combined systolic (congestive) and diastolic (congestive) heart failure; N18.4 Chronic kidney disease, stage 4 (severe); I25.10 Atherosclerotic heart disease of native coronary artery without angina pectoris
CPT/HCPCS: 80048; 85025

== ENCOUNTER 2017-03-24 15:16 | Outpatient (CLI) | payer MEDICARE ==
[2017-03-24 16:24] LABS: Anion Gap 16 mmol/L (10-20); BUN (Urea Nitrogen) 62 mg/dL (9.8-20.1); Calc. Creatinine Clearance 0 mL/min (70-130); Calcium 8.3 mg/dL (7.8-10.44); Carbon Dioxide 25 mmol/L (23-31); Chloride 98 mmol/L (98-107); Estimated GFR-MDRD 15; Glucose 101 mg/dL (83-110); Potassium 4.6 mmol/L (3.5-5.1); Sodium 134 mmol/L (136-145)
[2017-03-24 16:58] LABS: #Eosinphils 0.1 thou/uL (0.0-0.7); #Lymphocytes 1.2 thou/uL (1.20-3.40); #Monocytes 0.8 thou/uL (0.11-0.59); %Basophils 0.9 % (0.0-1.0); %Eosinophils 1.2 % (0.0-10.0); %Lymphocytes 24.4 % (21.0-51.0); %Monocytes 15.1 % (0.0-10.0); %Neutrophils 58.4 % (42.0-75.0); Hemoglobin 6.3 g/dL (12.0-16.0); Mean Corpuscular HGB CONC 32.1 g/dL (32.0-36.0); Mean Corpuscular Hemoglobin 30.4 pg (27.0-31.0); Mean Corpuscular Volume 94.5 fl (81.0-99.0); Mean Platelet Volume 5.7 fL (7.4-10.4); Platelet Count 208 thou/uL (130-400); RBC Distribution Width 19.7 % (11.5-14.5); Red Blood Cell (RBC) Count 2.06 mill/uL (4.20-5.40); White Blood Cell (WBC) Count 5.1 thou/uL (4.8-10.8)
== END 2017-03-24 15:17 | disposition home or self-care (01) ==
LOC: NAVSJIPCSP 15:16
PROVIDERS: ATTEND Internal Medicine
DX: D64.9 Anemia, unspecified (principal)
CPT/HCPCS: 80048; 85025

== ENCOUNTER 2017-03-25 09:33 | Observation (INO) | payer MEDICARE ==
[2017-03-25 10:00] VITALS: BMI 17.2
[2017-03-25] MEDS ORDERED: Furosemide 40 MG/4 ML VIAL SLOW IVP SCH (13:00)
[2017-03-25] MEDS: Furosemide 20 MG TAB PO SCH (14:18)
--- NOTE | 2017-03-25 15:16 | RAD ---
TWO VIEWS OF THE CHEST: DATE: 03/25/17. COMPARISON: 10/23/16. HISTORY: Chest pain and shortness of breath, congestive heart failure. FINDINGS: Stable enlargement of the cardiac silhouette. Stable dual-lead transvenous pacing device present an d stable mild increased interstitial density noted. There is no pneumothorax or pleural fluid and no focal consolidation or alveolar edema. There is ex aggerated thoracic kyphosis with severe wedge compression deformities present at T7 and T8, the T7 f racture new since the prior exam. There is evidence of kyphoplasty in the upper lumbar spine, stabl e. IMPRESSION: 1. Chronic changes as detailed above. No focal consolidation or alveolar edema. 2. New severe anterior wedge compression fracture at T7, adjacent to a chronic T8 anterior wedge co mpression fracture. POS: [facility]
[2017-03-25] MEDS: Dronedarone HCl 400 MG TAB PO SCH (17:17)
[2017-03-25 19:05] LABS: #Eosinphils 0.1 thou/uL (0.0-0.7); #Monocytes 0.7 thou/uL (0.11-0.59); #Neutrophils 2.6 thou/uL (1.40-6.50); %Basophils 0.7 % (0.0-1.0); %Eosinophils 1.9 % (0.0-10.0); %Lymphocytes 22.7 % (21.0-51.0); %Monocytes 15.9 % (0.0-10.0); %Neutrophils 58.8 % (42.0-75.0); Hemoglobin 7.4 g/dL (12.0-16.0); Mean Corpuscular Hemoglobin 29.5 pg (27.0-31.0); Mean Corpuscular Volume 92.3 fl (81.0-99.0); Mean Platelet Volume 5.2 fL (7.4-10.4); Platelet Count 199 thou/uL (130-400); RBC Distribution Width 19.2 % (11.5-14.5); Red Blood Cell (RBC) Count 2.52 mill/uL (4.20-5.40); White Blood Cell (WBC) Count 4.4 thou/uL (4.8-10.8)
[2017-03-25 19:14] LABS: Anion Gap 14 mmol/L (10-20); BUN (Urea Nitrogen) 63 mg/dL (9.8-20.1); Calc. Creatinine Clearance 10 mL/min (70-130); Calcium 8.4 mg/dL (7.8-10.44); Carbon Dioxide 27 mmol/L (23-31); Chloride 98 mmol/L (98-107); Estimated GFR-MDRD 17; Glucose 111 mg/dL (83-110); Potassium 4.2 mmol/L (3.5-5.1); Sodium 135 mmol/L (136-145)
[2017-03-25] MEDS: Docusate 100 MG CAP PO SCH (20:59)
[2017-03-26] MEDS: Acetaminophen 325 MG TAB PO PRN ×2 (00:14→08:44)
[2017-03-26 02:25] LABS: Hemoglobin 8.1 g/dL (12.0-16.0); Platelet Count 183 thou/uL (130-400)
--- NOTE | 2017-03-26 05:33 | HP ---
DATE OF SERVICE: 03/25/2017 REASON FOR ADMISSION/CHIEF COMPLAINT: Reason for placement in the operation unit recurrent severe a nemia. HISTORY OF PRESENT ILLNESS: The patient is an 89-year-old white female well known to myself with a long history of recurrent anemia and recurrent GI bleed, who has recently had admission to the [facility] in February of 2017, for GI bleeding in the transverse colon. She had a colonoscopy done showed the AVMs with cauterized and she did well until she had another bleeding episode, found to be due to AVM s in the left colon. Her EGD has been normal. She has not noticed any blood in her stool at this t melecio and does have dark stools because of chronic iron supplementation. She is not on any anticoagul ation despite a history of chronic atrial fibrillation, diastolic congestive heart failure and sever e hypertension as well as chronic kidney disease. As mentioned above, she was discharged from the [facility] exactly 1 month ago on 02/22/2017, and since that time, she has had only symptoms of weaknes s and dizziness and had a routine laboratory done follow up, which showed her to have hemoglobin of 7.3 on 03/19/2017, and went down to 6.3 yesterday; and she was typed and crossed for 2 units of pack ed cells and was placed in the [facility] today for elective transfusion. She is not having a ny headaches, dizziness or palpitations, but does state she feels weak. Her vital signs today showe d her to have a normal blood pressure of 127/62, O2 sat was 100%, respirations 16. She was afebrile . She was continuing on her medications of furosemide 40 twice daily, lactulose as needed, omeprazo le 10 daily, K-Dur 20 mEq daily, hydralazine 25 twice daily. As mentioned above, her atrial fibrill ation has been well controlled with no RVR on the Multaq. She has had no chest pain or palpitations . She is not taking any other medications including aspirin. 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 PAST SURGICAL HISTORY: Positive for the above-mentioned multiple EGDs, colonoscopies and cauterizat ion and cholecystectomy, pacemaker placement, appendectomy, cataract surgery, and left total hip. ALLERGIES: She is allergic to MORPHINE and PENICILLIN. CURRENT MEDICATIONS: As above. SOCIAL HISTORY: She still lives by herself. She is a nonsmoker, nondrinker. Next of kin is the grisel. She walks with a walker. FAMILY HISTORY: Positive for heart problems in the mother, cancer of the bladder in her sister, mos t recent code status was positive for a full code. REVIEW OF SYSTEMS: HEENT: She denies any headaches, dizziness, change in vision or hearing, hoarseness or dysphagia. PULMONARY: She denies cough, sputum production, pneumonia, asthma, tuberculosis. CARDIOVASCULAR: See history of present illness. She has no chest pain, orthopnea, paroxysmal noctu rnal dyspnea. She has had recurrent edema in the past with exacerbation of congestive heart failure . GASTROINTESTINAL: See history of present illness. She has no anorexia. No nausea or vomiting. GENITOURINARY: Denied dysuria, hematuria or nocturia. MUSCULOSKELETAL: She has a chronic pain in her back and she has some pain in her knees and ankles. NEUROLOGIC: She denies localized numbness, weakness in arms or extremities. PHYSICAL EXAMINATION: GENERAL: Patient is an elderly white female lying in bed, appears weak, but in no acute distress. VITAL SIGNS: As above with blood pressure 127/60, O2 sat 100%, respirations 16, pulse 67 and irregu lar, afebrile. HEENT: Pupils are equal, round, and react to light and accommodation. Sclerae are anicteric. Conj unctivae pale. Oral mucous membranes dehydrated. NECK: Supple. There are no nodes or masses. LUNGS: Show decreased breath sounds. No rales or rhonchi. CARDIAC: Showed irregularly irregular rhythm. ABDOMEN: Soft, nontender with no masses or organomegaly. SKIN/EXTREMITIES: Display no edema, clubbing, cyanosis. NEUROLOGICAL: Shows no focal findings. MUSCULOSKELETAL: Show significant tenderness and kyphoscoliosis of the lumbar spine. LABORATORY AND X-RAY FINDINGS: Shows the above-mentioned hemoglobin most recent creatinine was 2.21 last month. ASSESSMENT AND PLAN: An 89-year-old white female with a history of recurrent anemia secondary to ch ronic gastrointestinal bleed from recurrent AVMs, does not appear to have any significant bleeding, but has had a decrease in her hemoglobin from 9.6 one month ago to 6.3 yesterday. She has had exace rbation of CHF in the past with this and therefore we admitted to the hospital and started on transf usion and then we will have an elective colonoscopy and a bleeding scan done again per Dr. Beal after discussion with him after she is stable), as she will be restarted back on her blood pressure medications and furosemide and monitor her closely. Her prognosis is guarded and DNR status will b e discussed with her again.
[2017-03-26 07:53] VITALS: BP 170/81; TEMP 98.9
[2017-03-26] MEDS ORDERED: Ferrous Sulfate 325 MG TAB PO SCH (08:00)
[2017-03-26] MEDS: Dronedarone HCl 400 MG TAB PO SCH (08:43)
[2017-03-26] MEDS: Furosemide 20 MG TAB PO SCH (08:43)
[2017-03-26] MEDS: Calcitonin,Salmon,Synthetic 200 Units 3.7 ML PUMP R NARE SCH ×2 (08:43→11:03)
[2017-03-26] MEDS: Docusate 100 MG CAP PO SCH (08:43)
[2017-03-26] MEDS ORDERED: Potassium Chloride 20 MEQ TAB PO SCH (09:00)
[2017-03-26] MEDS ORDERED: Lidocaine 5% Patch TD SCH (09:00)
[2017-03-26 09:33] LABS: #Eosinphils 0.1 thou/uL (0.0-0.7); #Monocytes 0.7 thou/uL (0.11-0.59); #Neutrophils 4.3 thou/uL (1.40-6.50); %Basophils 0.8 % (0.0-1.0); %Eosinophils 1.7 % (0.0-10.0); %Lymphocytes 16.2 % (21.0-51.0); %Monocytes 11.1 % (0.0-10.0); %Neutrophils 70.1 % (42.0-75.0); Hemoglobin 10.4 g/dL (12.0-16.0); Mean Corpuscular HGB CONC 32.2 g/dL (32.0-36.0); Mean Corpuscular Hemoglobin 29.3 pg (27.0-31.0); Mean Platelet Volume 5.6 fL (7.4-10.4); Platelet Count 200 thou/uL (130-400); RBC Distribution Width 18.2 % (11.5-14.5); Red Blood Cell (RBC) Count 3.55 mill/uL (4.20-5.40); White Blood Cell (WBC) Count 6.1 thou/uL (4.8-10.8)
[2017-03-26 09:51] LABS: Anion Gap 15 mmol/L (10-20); BUN (Urea Nitrogen) 61 mg/dL (9.8-20.1); Calc. Creatinine Clearance 11 mL/min (70-130); Calcium 8.8 mg/dL (7.8-10.44); Carbon Dioxide 26 mmol/L (23-31); Chloride 99 mmol/L (98-107); Estimated GFR-MDRD 19; Glucose 107 mg/dL (83-110); Potassium 3.6 mmol/L (3.5-5.1); Sodium 136 mmol/L (136-145)
== END 2017-03-26 11:40 | disposition home or self-care (01) ==
LOC: NAV ACUTE 09:33
PROVIDERS: ADMIT Internal Medicine; ATTEND Internal Medicine
PROC: 30233N1 Transfusion of Nonautologous Red Blood Cells into Peripheral Vein, Percutaneous Approach (ICD-10-PCS; principal; 2017-03-25)
PROC: 30233N1 Transfusion of Nonautologous Red Blood Cells into Peripheral Vein, Percutaneous Approach (ICD-10-PCS; 2017-03-26)
DX: D50.0 Iron deficiency anemia secondary to blood loss (chronic) (principal); I48.2 Chronic atrial fibrillation; K55.20 Angiodysplasia of colon without hemorrhage; I13.0 Hypertensive heart and chronic kidney disease with heart failure and stage 1 through stage 4 chronic kidney disease, or unspecified chronic kidney disease; I50.32 Chronic diastolic (congestive) heart failure; N18.4 Chronic kidney disease, stage 4 (severe); I07.1 Rheumatic tricuspid insufficiency; I25.10 Atherosclerotic heart disease of native coronary artery without angina pectoris; I49.5 Sick sinus syndrome; M81.0 Age-related osteoporosis without current pathological fracture; M19.91 Primary osteoarthritis, unspecified site; G89.29 Other chronic pain; M54.9 Dorsalgia, unspecified; Z95.0 Presence of cardiac pacemaker; Z90.49 Acquired absence of other specified parts of digestive tract; Z96.642 Presence of left artificial hip joint; M41.9 Scoliosis, unspecified
CPT/HCPCS: 36415; 36430; 71020; 80048; 85014; 85018; 85025; 85049; 86850; 86900; 86901; A4216; G0378; G0379; J1940; P9016

== ENCOUNTER 2017-04-17 09:56 | Outpatient (CLI) | payer MEDICARE ==
[2017-04-17 10:17] LABS: #Eosinphils 0.1 thou/uL (0.0-0.7); #Lymphocytes 0.8 thou/uL (1.20-3.40); #Monocytes 0.4 thou/uL (0.11-0.59); #Neutrophils 1.8 thou/uL (1.40-6.50); %Basophils 0.9 % (0.0-1.0); %Eosinophils 2.7 % (0.0-10.0); %Lymphocytes 24.4 % (21.0-51.0); %Monocytes 12.2 % (0.0-10.0); %Neutrophils 59.9 % (42.0-75.0); Hemoglobin 6.2 g/dL (12.0-16.0); Mean Corpuscular HGB CONC 31.4 g/dL (32.0-36.0); Mean Corpuscular Hemoglobin 30.1 pg (27.0-31.0); Mean Corpuscular Volume 95.8 fl (81.0-99.0); Platelet Count 195 thou/uL (130-400); RBC Distribution Width 16.7 % (11.5-14.5); Red Blood Cell (RBC) Count 2.05 mill/uL (4.20-5.40); White Blood Cell (WBC) Count 3.1 thou/uL (4.8-10.8)
[2017-04-17 10:29] LABS: Anion Gap 14 mmol/L (10-20); BUN (Urea Nitrogen) 57 mg/dL (9.8-20.1); Calc. Creatinine Clearance 0 mL/min (70-130); Calcium 8.3 mg/dL (7.8-10.44); Carbon Dioxide 26 mmol/L (23-31); Chloride 100 mmol/L (98-107); Estimated GFR-MDRD 16; Glucose 121 mg/dL (83-110); Potassium 4.6 mmol/L (3.5-5.1); Sodium 135 mmol/L (136-145)
== END 2017-04-17 09:57 | disposition home or self-care (01) ==
LOC: NAV LABSP 09:56
PROVIDERS: ATTEND Internal Medicine
DX: I13.0 Hypertensive heart and chronic kidney disease with heart failure and stage 1 through stage 4 chronic kidney disease, or unspecified chronic kidney disease (principal); I50.42 Chronic combined systolic (congestive) and diastolic (congestive) heart failure; N18.4 Chronic kidney disease, stage 4 (severe); I25.10 Atherosclerotic heart disease of native coronary artery without angina pectoris; I48.0 Paroxysmal atrial fibrillation; K55.21 Angiodysplasia of colon with hemorrhage
CPT/HCPCS: 80048; 85025

== ENCOUNTER 2017-04-17 15:41 | Observation (INO) | payer MEDICARE ==
[2017-04-17 16:04] VITALS: BMI 18.3
[2017-04-17] MEDS: Docusate 100 MG CAP PO SCH (20:16)
[2017-04-17] MEDS: Acetaminophen 325 MG TAB PO PRN (21:52)
[2017-04-18] MEDS ORDERED: Lidocaine Patch Removal 1 EACH TOP SCH (06:00)
[2017-04-18] MEDS ORDERED: Ferrous Sulfate 325 MG TAB PO SCH (08:00)
[2017-04-18] MEDS: Furosemide 20 MG TAB PO SCH ×2 (08:32→14:44)
[2017-04-18] MEDS: Docusate 100 MG CAP PO SCH (08:32)
[2017-04-18] MEDS: Dronedarone HCl 400 MG TAB PO SCH ×2 (08:32→16:51)
[2017-04-18] MEDS: Acetaminophen 325 MG TAB PO PRN (08:33)
[2017-04-18] MEDS ORDERED: Potassium Chloride 20 MEQ TAB PO SCH (09:00)
[2017-04-18 13:13] LABS: #Basophils 0.1 thou/uL (0.0-0.2); #Eosinphils 0.1 thou/uL (0.0-0.7); #Lymphocytes 1.3 thou/uL (1.20-3.40); #Monocytes 0.6 thou/uL (0.11-0.59); #Neutrophils 2.9 thou/uL (1.40-6.50); %Basophils 1.2 % (0.0-1.0); %Eosinophils 1.7 % (0.0-10.0); %Lymphocytes 26.5 % (21.0-51.0); %Monocytes 11.7 % (0.0-10.0); %Neutrophils 58.9 % (42.0-75.0); Hemoglobin 9.7 g/dL (12.0-16.0); Mean Corpuscular HGB CONC 31.9 g/dL (32.0-36.0); Mean Corpuscular Hemoglobin 29.4 pg (27.0-31.0); Mean Platelet Volume 5.7 fL (7.4-10.4); Platelet Count 221 thou/uL (130-400); RBC Distribution Width 16.2 % (11.5-14.5); Red Blood Cell (RBC) Count 3.29 mill/uL (4.20-5.40); White Blood Cell (WBC) Count 4.9 thou/uL (4.8-10.8)
[2017-04-18 16:39] VITALS: BP 159/88; TEMP 97.9
[2017-04-18] MEDS ORDERED: Lidocaine 5% Patch TD SCH (18:00)
[2017-04-19] MEDS ORDERED: Calcitonin,Salmon,Synthetic 200 Units 3.7 ML PUMP R NARE SCH (09:00)
== END 2017-04-18 17:02 | disposition home health service (06) ==
LOC: NAV ACUTE 15:41
PROVIDERS: ADMIT Internal Medicine; ATTEND Internal Medicine
PROC: 30233N1 Transfusion of Nonautologous Red Blood Cells into Peripheral Vein, Percutaneous Approach (ICD-10-PCS; principal; 2017-04-17)
PROC: 30233N1 Transfusion of Nonautologous Red Blood Cells into Peripheral Vein, Percutaneous Approach (ICD-10-PCS; 2017-04-18)
DX: D64.9 Anemia, unspecified (principal); Z87.19 Personal history of other diseases of the digestive system; I48.2 Chronic atrial fibrillation; I13.0 Hypertensive heart and chronic kidney disease with heart failure and stage 1 through stage 4 chronic kidney disease, or unspecified chronic kidney disease; N18.4 Chronic kidney disease, stage 4 (severe); I50.30 Unspecified diastolic (congestive) heart failure; M51.36 Other intervertebral disc degeneration, lumbar region; M81.0 Age-related osteoporosis without current pathological fracture; I49.5 Sick sinus syndrome; Z95.0 Presence of cardiac pacemaker; Z79.899 Other long term (current) drug therapy
CPT/HCPCS: 36415; 36430; 80048; 85025; 86850; 86900; 86901; G0378; G0379; P9016